=== PATIENT | female | born 1980 | race Two or more races ===

== ENCOUNTER 2018-03-21 08:03 | Outpatient (CLI) | payer OTHER | END 2018-03-21 08:15 | disposition home or self-care (01) | LOC: MAMO-SONO 08:03 | DX: N64.59 Other signs and symptoms in breast (principal); N64.89 Other specified disorders of breast; N63.10 Unspecified lump in the right breast, unspecified quadrant; N63.20 Unspecified lump in the left breast, unspecified quadrant; N94.0 Mittelschmerz; R10.2 Pelvic and perineal pain; N94.89 Other specified conditions associated with female genital organs and menstrual cycle ==

== ENCOUNTER 2019-04-02 08:17 | Outpatient (CLI) | payer OTHER | END 2019-04-02 08:39 | disposition home or self-care (01) | LOC: MAMO-SONO 08:17 | DX: Z12.31 Encounter for screening mammogram for malignant neoplasm of breast (principal); Z87.898 Personal history of other specified conditions; N63.10 Unspecified lump in the right breast, unspecified quadrant; N63.20 Unspecified lump in the left breast, unspecified quadrant; N64.59 Other signs and symptoms in breast; N64.89 Other specified disorders of breast ==

== ENCOUNTER 2019-05-12 11:33 | Outpatient (CLI) | payer OTHER | END 2019-05-12 11:48 | disposition home or self-care (01) | LOC: SONOGRAMA 11:33 | DX: N60.11 Diffuse cystic mastopathy of right breast (principal); N60.12 Diffuse cystic mastopathy of left breast; N63.22 Unspecified lump in the left breast, upper inner quadrant ==

== ENCOUNTER 2021-02-14 13:25 | Outpatient (CLI) | payer OTHER | END 2021-02-14 13:46 | disposition home or self-care (01) | LOC: MAMO-SONO 13:25 | PROVIDERS: ATTEND General Practice | DX: N60.12 Diffuse cystic mastopathy of left breast (principal); N60.11 Diffuse cystic mastopathy of right breast ==

== ENCOUNTER 2022-03-15 09:35 | Outpatient (CLI) | payer OTHER | END 2022-03-15 09:51 | disposition home or self-care (01) | LOC: MAMO-SONO 09:35 | PROVIDERS: ATTEND General Practice | DX: N60.12 Diffuse cystic mastopathy of left breast (principal); N60.11 Diffuse cystic mastopathy of right breast; Z12.31 Encounter for screening mammogram for malignant neoplasm of breast ==